=== PATIENT | male | born 1995 | race Caucasian/White ===

== ENCOUNTER 2016-09-18 18:56 | Emergency (ER) | payer BC ==
[2016-09-18] MEDS ORDERED: Ondansetron 4 MG/2 ML SDV IV ONE (20:44)
[2016-09-18] MEDS ORDERED: Morphine 2 MG/ML Syringe IVPUSH ONE (20:44)
[2016-09-18] MEDS ORDERED: Sodium Chloride 0.9% 1,000 ML IV ONE (20:44)
--- NOTE | 2016-09-18 20:50 | EDM.PDOC ---
ED HPI GI/ABDOMINAL - General Chief Complaint: Gastrointestinal Problem Stated Complaint: VOMITING BLOOD Time Seen by Provider: 09/18/16 20:47 Source of Information: Reports: Patient History Limitations: Reports: Intoxication - History of Present Illness INITIAL COMMENTS - FREE TEXT/NARRATIVE: woke up this AM with ab'd pain and later developed diarrhoea then got sicker and vomited few times and saw blood streaks that really worried him because his father had same problem and turned out to be ruptured appy. - Related Data Allergies/ADRs: Allergies Allergy/AdvReac Type Severity Reaction Status Date / Time No Known Allergies Allergy Verified 09/18/16 19:36 Home Meds: Home Meds Escitalopram [Lexapro] 20 mg PO DAILY 09/18/16 [History] Past Medical History - Past Health History Medical/Surgical History: Denies Medical/Surgical History HEENT History: Reports: Impaired vision Respiratory History: Reports: Bronchitis, recurrent, Other (see below) Other Respiratory History: broncho spasm. Gastrointestinal History: Reports: GERD Musculoskeletal History: Reports: Fracture Other Musculoskeletal History: Rt. wrist fx. Psychiatric History: Reports: Depression Endocrine/Metabolic History: Reports: Obesity/BMI 30+ - Infectious Disease History Infectious Disease History: Reports: Chicken pox - Past Surgical History GI Surgical History: Reports: Cholecystectomy Social & Family History - Family History Family Medical History: Noncontributory - Tobacco Use Smoking Status *Q: Current Some Day Smoker Years of Tobacco use: 2 Packs/Tins Daily: 0.1 Used Tobacco, but Quit: Yes Month Tobacco Last Used: april Second Hand Smoke Exposure: Yes - Caffeine Use Caffeine Use: Reports: Coffee, Soda - Alcohol Use Days Per Week of Alcohol Use: 0 - Recreational Drug Use Recreational Drug Use: No ED ROS GENERAL - Review of Systems Review Of Systems: ROS reveals no pertinent complaints other than HPI. ED EXAM, GI/ABD - Physical Exam Exam: See Below Exam Limited By: No limitations General Appearance: alert, WD/WN, mild distress, other (distraught) Ears: hearing grossly normal Throat/Mouth: Normal voice, No airway compromise Head: atraumatic Neck: non-tender, full range of motion Respiratory/Chest: no respiratory distress Cardiovascular: regular rate, rhythm GI/Abdominal: hyperactive bowel sounds, tenderness, other (RIGHT side & RLQ). No: distention, guarding, rebound, rigidity Neurological: alert, oriented, normal cognition, normal gait, no motor/sensory deficits Psychiatric: anxious Skin Exam: Warm, Dry Lymphatic: no adenopathy Course - Vital Signs Last Recorded V/S: Last Vital Signs Temp 36.3 C 09/18/16 19:31 Pulse 98 09/18/16 19:31 Resp 16 09/18/16 19:31 BP 161/89 H 09/18/16 19:31 Pulse Ox 98 09/18/16 19:31 - Orders/Labs/Meds Orders: Active Orders 24 hr Category Date Time Status Abdomen Pelvis w Cont [CT] Urgent Exams 09/18/16 20:46 Taken Sodium Chloride 0.9% [Normal Saline] 1,000 ml Med 09/18/16 20:44 Active IV .BOLUS Medication Orders Sodium Chloride (Normal Saline) 1,000 mls @ 500 mls/hr IV .BOLUS ONE Stop: 09/18/16 22:43 Last Admin: 09/18/16 20:59 Dose: 500 mls/hr Labs: Laboratory Tests 09/18/16 09/18/16 Range/Units 20:50 20:50 WBC 8.3 (5.0-10.0) 10^3/uL RBC 4.51 L (4.6-6.2) 10^6/uL Hgb 13.7 L (14.0-18.0) g/dL Hct 39.4 L (40.0-54.0) % MCV 87.4 (80-100) fL MCH 30.4 (27.0-34.0) pg MCHC 34.8 (33.0-35.0) g/dL Plt Count 200 (150-450) 10^3/uL Neut % (Auto) 57.1 (42.2-75.2) % Lymph % (Auto) 32.7 (20.5-50.1) % [place] % (Auto) 8.8 H (2-8) % Eos % (Auto) 1.0 (1.0-3.0) % Baso % (Auto) 0.4 (0.0-1.0) % Sodium 140 (135-145) mmol/L Potassium 3.7 (3.6-5.0) mmol/L Chloride 105 (101-111) mmol/L Carbon Dioxide 24.0 (21.0-31.0) mmol/L Anion Gap 14.7 BUN 11 (7-18) mg/dL Creatinine 0.8 (0.6-1.3) mg/dL Est Cr Clr Drug Dosing 168.40 mL/min Estimated GFR (MDRD) > 60 BUN/Creatinine Ratio 13.75 Glucose 98 (74-105) mg/dL Calcium 9.1 (8.4-10.2) mg/dl Total Bilirubin 0.9 (0.2-1.0) mg/dL AST 28 (10-42) IU/L ALT 51 (10-60) IU/L Alkaline Phosphatase 49 (42-121) IU/L Total Protein 7.6 (6.7-8.2) g/dl Albumin 4.3 (3.2-5.5) g/dl Globulin 3.3 Albumin/Globulin Ratio 1.30 Amylase 45 (28-100) U/L Lipase 34 (22-51) U/L Meds: Medications Generic Name Dose Route Start Last Admin Trade Name Freq PRN Reason Stop Dose Admin Sodium Chloride 1,000 mls @ 500 mls/hr 09/18/16 20:44 09/18/16 20:59 Normal Saline IV 09/18/16 22:43 500 mls/hr .BOLUS ONE Administration Discontinued Medications Generic Name Dose Route Start Last Admin Trade Name Freq PRN Reason Stop Dose Admin Iopamidol 75 ml 09/18/16 20:59 09/18/16 21:01 Isovue-300 (61%) IVPUSH 09/18/16 21:00 75 ml ONETIME ONE Administration Iopamidol 50 ml 09/18/16 20:59 09/18/16 21:01 Isovue-300 (61%) IVPUSH 09/18/16 21:00 50 ml ONETIME ONE Administration Morphine Sulfate 2 mg 09/18/16 20:44 09/18/16 21:00 Morphine IVPUSH 09/18/16 20:45 2 mg ONETIME ONE Administration Ondansetron HCl 4 mg 09/18/16 20:44 09/18/16 20:59 Zofran IV 09/18/16 20:45 4 mg ONETIME ONE Administration - Re-Assessments/Exams Free Text/Narrative Re-Assessment/Exam: 09/18/16 22:04 results discussed with Pt who is feeling better post IV Departure - Departure Time of Disposition: 22:05 Disposition: Home, Self-Care 01 Condition: good Clinical Impression: Vomiting, Gastroenteritis Instructions: Viral Gastroenteritis, Adult, [id number] Forms: ED Department Discharge Additional Instructions: 1) avoid solid foods next 3 days 2) have popsicle, jello, juice 3) take tylenol or motrin as needed for fever or body aches 4) follow up at clinic or recheck as nneded rx given: bentyl 10mg bid prn zofran 4mg ODT bid prn immodium qid prn - My Orders Last 24 Hours: My Active Orders 09/18/16 20:44 Sodium Chloride 0.9% [Normal Saline] 1,000 ml IV .BOLUS 09/18/16 20:46 Abdomen Pelvis w Cont [CT] Urgent - Assessment/Plan Last 24 Hours: My Active Orders 09/18/16 20:44 Sodium Chloride 0.9% [Normal Saline] 1,000 ml IV .BOLUS 09/18/16 20:46 Abdomen Pelvis w Cont [CT] Urgent
[2016-09-18] MEDS ORDERED: Iopamidol 612 MG/ML 75 ML Bottle IVPUSH ONE (20:59)
[2016-09-18] MEDS ORDERED: Iopamidol 612 MG/ML 50 ML SDV IVPUSH ONE (20:59)
[2016-09-18 21:20] LABS: CHLORIDE,CL 105 mmol/L (101-111); SODIUM,NA 140 mmol/L (135-145)
[2016-09-18 22:17] VITALS: BP 140/98
== END 2016-09-18 22:15 | disposition home or self-care (01) ==
LOC: DL.ED 18:56
DX: K52.9 Noninfective gastroenteritis and colitis, unspecified (principal); K21.9 Gastro-esophageal reflux disease without esophagitis; F32.9 Major depressive disorder, single episode, unspecified; E66.9 Obesity, unspecified; Z90.49 Acquired absence of other specified parts of digestive tract; Z79.899 Other long term (current) drug therapy
CPT/HCPCS: 36415; 74177; 80053; 82150; 83690; 85025; 96365; 96375; 99284; J2270; J2405; J7030; Q9967

== ENCOUNTER 2017-03-26 11:50 | Emergency (ER) | payer BC ==
[2017-03-26 11:56] VITALS: BP 147/75
--- NOTE | 2017-03-26 12:37 | CR ---
Clinical history: 21-year-old male with abdominal pain. Interpretation: (Flat and upright films x4) Large male with levorotatory lumbar scoliosis. Clips gall bladder fossa. No sign of other foreign body, pathologic calcification, mechanical bowel obstruction or free intrape ritoneal air. Lung bases clear. AP pelvis and hips unremarkable. Large abdominal soft tissue pannus. CONCLUSION: Nonspecific plain film exam abdomen.
--- NOTE | 2017-03-26 12:52 | EDM.PDOC ---
ED HPI GENERAL MEDICAL PROBLEM - General Chief Complaint: Abdominal Pain Stated Complaint: ABD PAINS, SP [facility] Time Seen by Provider: 03/26/17 11:55 Source of Information: Reports: Patient History Limitations: Reports: No Limitations - History of Present Illness INITIAL COMMENTS - FREE TEXT/NARRATIVE: 21 yo white male c/o LLQ abdomen pain starting at 11:30AM Onset: Today Onset Date: 03/26/17 Onset Time: 11:30 Duration: Minutes: Location: Reports: Abdomen Quality: Reports: Ache (LLQ) Severity: Moderate Improves with: Reports: None Worsens with: Reports: None Context: Reports: Other (PMHx. Constipation) Associated Symptoms: Reports: No Other Symptoms Left Lower Abdominal Pain Score (Numeric/FACES): 9 - Related Data Allergies Allergy/AdvReac Type Severity Reaction Status Date / Time No Known Allergies Allergy Verified 03/26/17 11:56 Home Meds: Home Meds Escitalopram [Lexapro] 20 mg PO DAILY 09/18/16 [History] Past Medical History - Past Health History Medical/Surgical History: Denies Medical/Surgical History HEENT History: Reports: Impaired Vision Cardiovascular History: Reports: None Respiratory History: Reports: Bronchitis, Recurrent Other Respiratory History: broncho spasm. Gastrointestinal History: Reports: Chronic Constipation, GERD Genitourinary History: Reports: None Musculoskeletal History: Reports: Fracture Other Musculoskeletal History: Rt. wrist fx. Neurological History: Reports: None Psychiatric History: Reports: Depression Endocrine/Metabolic History: Reports: Obesity/BMI 30+ Hematologic History: Reports: None Oncologic (Cancer) History: Reports: None Dermatologic History: Reports: None - Infectious Disease History Infectious Disease History: Reports: Chicken Pox - Past Surgical History GI Surgical History: Reports: Cholecystectomy Social & Family History - Family History Family Medical History: Noncontributory - Tobacco Use Smoking Status *Q: Current Some Day Smoker Years of Tobacco use: 3 Packs/Tins Daily: 0.1 Used Tobacco, but Quit: Yes Month Tobacco Last Used: april Second Hand Smoke Exposure: Yes - Caffeine Use Caffeine Use: Reports: Coffee, Energy Drinks, Soda - Alcohol Use Days Per Week of Alcohol Use: 0 - Recreational Drug Use Recreational Drug Use: No ED ROS GENERAL - Review of Systems Review Of Systems: See Below Constitutional: Reports: No Symptoms HEENT: Reports: No Symptoms Respiratory: Reports: No Symptoms Cardiovascular: Reports: No Symptoms Endocrine: Reports: No Symptoms GI/Abdominal: Reports: Abdominal Pain (LLQ) : Reports: No Symptoms Musculoskeletal: Reports: No Symptoms Skin: Reports: No Symptoms Neurological: Reports: No Symptoms Psychiatric: Reports: No Symptoms Hematologic/Lymphatic: Reports: No Symptoms Immunologic: Reports: No Symptoms ED EXAM, GI/ABD - Physical Exam Exam: See Below Exam Limited By: No Limitations General Appearance: Alert, Obese Eyes: Bilateral: EOMI Ears: Normal External Exam Nose: Normal Inspection Throat/Mouth: Normal Inspection Head: Atraumatic Neck: Normal Inspection Respiratory/Chest: No Respiratory Distress Cardiovascular: Normal Peripheral Pulses GI/Abdominal Exam: No Mass, Tender (LLQ), Abnormal Bowel Sounds (decrerased) Back Exam: Normal Inspection Extremities: Normal Inspection, Normal Range of Motion Neurological: Alert, Oriented, CN II-XII Intact Psychiatric: Normal Affect Skin Exam: Warm, Dry Lymphatic: No Adenopathy Course - Vital Signs Last Recorded V/S: Last Vital Signs Temp 36.8 C 03/26/17 11:52 Pulse 86 03/26/17 11:52 Resp 18 03/26/17 11:52 BP 147/75 H 03/26/17 11:52 Pulse Ox 99 03/26/17 11:52 - Orders/Labs/Meds Orders: Active Orders 24 hr Category Date Time Status CBC WITH AUTO DIFF [HEME] Stat Lab 03/26/17 11:59 Ordered COMPREHENSIVE METABOLIC PN,CMP [CHEM] Stat Lab 03/26/17 11:59 Ordered UA W/MICROSCOPIC [URIN] Stat Lab 03/26/17 11:59 Uncollected Departure - Departure Time of Disposition: 12:49 Disposition: Home, Self-Care 01 Condition: Good Clinical Impression: Obstipation Abdominal pain Qualifiers: Abdominal location: left lower quadrant Qualified Code(s): R10.32 - Left lower quadrant pain - Discharge Information Instructions: Constipation, Adult, [id number], Abdominal Pain, Adult, Easy-to -Read Forms: ED Department Discharge Additional Instructions: Increase water intake TODAY: 1) Drink on bottle of Magnesium Citrate 2) Give yourself a FLEET Enema 3) Increase intake of fresh fruits and vegetables 4) STOP constipating foods ( Animal products, processed foods and Dairy products) 5) Chew prunes daily to promote good bowel function F/U w/ PCP - My Orders Last 24 Hours: My Active Orders 03/26/17 11:59 CBC WITH AUTO DIFF [HEME] Stat COMPREHENSIVE METABOLIC PN,CMP [CHEM] Stat UA W/MICROSCOPIC [URIN] Stat - Assessment/Plan Last 24 Hours: My Active Orders 03/26/17 11:59 CBC WITH AUTO DIFF [HEME] Stat COMPREHENSIVE METABOLIC PN,CMP [CHEM] Stat UA W/MICROSCOPIC [URIN] Stat
[2017-03-26 14:56] LABS: SODIUM,NA 139 mmol/L (135-145)
[2017-03-26 14:57] LABS: CHLORIDE,CL 105 mmol/L (101-111)
== END 2017-03-26 12:54 | disposition home or self-care (01) ==
LOC: DL.ED 11:50
DX: K59.00 Constipation, unspecified (principal); K21.9 Gastro-esophageal reflux disease without esophagitis; F17.210 Nicotine dependence, cigarettes, uncomplicated; Z79.899 Other long term (current) drug therapy
CPT/HCPCS: 36415; 74020; 80053; 81001; 85025; 99284

== ENCOUNTER 2017-08-25 14:11 | Emergency (ER) | payer BC, OTHER ==
[2017-08-25] MEDS ORDERED: Sodium Chloride 0.9% 10 ML Syringe FLUSH PRN (14:52)
--- NOTE | 2017-08-25 14:52 | EDM.PDOC ---
ED HPI GENERAL MEDICAL PROBLEM - General Chief Complaint: Chest Pain Stated Complaint: CHEST PAINS [id number] Time Seen by Provider: 08/25/17 14:46 Source of Information: Reports: Patient, RN, RN Notes Reviewed History Limitations: Reports: No Limitations - History of Present Illness INITIAL COMMENTS - FREE TEXT/NARRATIVE: Kang is a 22yo M who presents to the ED today with mid-sternal chest pain that started around 1000 this am. Reports that he has just woken up when he noticed the pain. Reports pain is worse with movement or deep breathing. Reports dizziness off and on. Has had a productive cough for the last two days. Has had chills off and on.Mild shortness of breath. Denies body aches, nausea,vomiting, or abd pain. Denies recent exposure to anyone that has been ill. Onset: Today Duration: Hour(s):, Constant Location: Reports: Chest Quality: Reports: Stabbing Severity: Moderate Improves with: Reports: None Worsens with: Reports: Breathing, Movement Associated Symptoms: Reports: cough w sputum, Shortness of Breath Mid-Sternal Chest Pain Score (Numeric/FACES): 10 - Related Data Allergies Allergy/AdvReac Type Severity Reaction Status Date / Time No Known Allergies Allergy Verified 03/26/17 11:56 Home Meds: Home Meds Escitalopram [Lexapro] 20 mg PO DAILY 09/18/16 [History] Past Medical History - Past Health History Medical/Surgical History: Denies Medical/Surgical History HEENT History: Reports: Impaired Vision Cardiovascular History: Reports: None Respiratory History: Reports: Bronchitis, Recurrent Other Respiratory History: broncho spasm. Gastrointestinal History: Reports: Chronic Constipation, GERD Genitourinary History: Reports: None Musculoskeletal History: Reports: Fracture Other Musculoskeletal History: Rt. wrist fx. Neurological History: Reports: None Psychiatric History: Reports: Anxiety, Depression Endocrine/Metabolic History: Reports: Obesity/BMI 30+ Hematologic History: Reports: None Oncologic (Cancer) History: Reports: None Dermatologic History: Reports: None - Infectious Disease History Infectious Disease History: Reports: Chicken Pox - Past Surgical History GI Surgical History: Reports: Cholecystectomy Social & Family History - Family History Family Medical History: Noncontributory - Tobacco Use Smoking Status *Q: Never Smoker Years of Tobacco use: 3 Packs/Tins Daily: 0.1 Used Tobacco, but Quit: Yes Month Tobacco Last Used: november Second Hand Smoke Exposure: Yes - Caffeine Use Caffeine Use: Reports: Soda - Alcohol Use Days Per Week of Alcohol Use: 0 - Recreational Drug Use Recreational Drug Use: No ED ROS GENERAL - Review of Systems Review Of Systems: ROS reveals no pertinent complaints other than HPI. ED EXAM, GENERAL - Physical Exam Exam: See Below Exam Limited By: No Limitations General Appearance: Alert, WD/WN, No Apparent Distress Eye Exam: Bilateral Eye: PERRL Ears: Normal External Exam, Normal Canal, Normal TMs Ear Exam: Bilateral Ear: Canal Normal, TM normal Nose: Normal Inspection, Normal Mucosa Throat/Mouth: Normal Inspection, Normal Oropharynx, No Airway Compromise Head: Atraumatic, Normocephalic Neck: Normal Inspection, Supple Respiratory/Chest: No Respiratory Distress, Lungs Clear, Normal Breath Sounds, No Accessory Muscle Use Cardiovascular: Regular Rate, Rhythm, No Gallop, No Murmur, No Rub, Other ( Patient reports pain to mid chest worse on palpation) GI/Abdominal: Normal Bowel Sounds, Soft, Non-Tender, No Organomegaly (Male) Exam: Deferred Rectal (Males) Exam: Deferred Back Exam: Normal Inspection, Full Range of Motion Extremities: Normal Inspection, Normal Range of Motion, Normal Capillary Refill Neurological: Alert, Oriented, CN II-XII Intact Psychiatric: Normal Affect, Normal Mood Skin Exam: Warm, Dry, Normal Color, No Rash EKG INTERPRETATION EKG Date: 08/25/17 Time: 14:27 Rhythm: NSR Rate (Beats/Min): 70 [place]: Normal P-Wave: Present QRS: Normal ST-T: Normal QT: Normal Comparison: No Change Course - Vital Signs Last Recorded V/S: Last Vital Signs Temp 98 F 08/25/17 14:30 Pulse 89 08/25/17 16:36 Resp 18 08/25/17 16:36 BP 141/86 H 08/25/17 16:36 Pulse Ox 99 08/25/17 16:36 - Orders/Labs/Meds Orders: Active Orders 24 hr Category Date Time Status EKG Documentation Completion [RC] STAT Care 08/25/17 14:53 Active Peripheral IV Care [RC] . DIRECTED Care 08/25/17 14:54 Active Sodium Chloride 0.9% [Saline Flush] Med 08/25/17 14:52 Active 10 ml FLUSH ASDIRECTED PRN Peripheral IV Insertion Adult [OM.PC] Stat Oth 08/25/17 14:53 Ordered Medication Orders Sodium Chloride (Saline Flush) 10 ml FLUSH ASDIRECTED PRN PRN Reason: Keep Vein Open Last Admin: 08/25/17 16:36 Dose: 10 ml Labs: Laboratory Tests 08/25/17 08/25/17 08/25/17 Range/Units 15:05 15:05 15:05 WBC 6.5 (5.0-10.0) 10^3/uL RBC 5.11 (4.6-6.2) 10^6/uL Hgb 15.4 D (14.0-18.0) g/dL Hct 44.2 (40.0-54.0) % MCV 86.5 (80-100) fL MCH 30.1 (27.0-34.0) pg MCHC 34.8 (33.0-35.0) g/dL Plt Count 178 (150-450) 10^3/uL Neut % (Auto) 51.9 (42.2-75.2) % Lymph % (Auto) 37.1 (20.5-50.1) % [place] % (Auto) 8.9 H (2-8) % Eos % (Auto) 1.8 (1.0-3.0) % Baso % (Auto) 0.3 (0.0-1.0) % D-Dimer, Quantitative (0-400) ng/mL Sodium 136 (135-145) mmol/L Potassium 3.9 (3.6-5.0) mmol/L Chloride 104 (101-111) mmol/L Carbon Dioxide 25.0 (21.0-31.0) mmol/L Anion Gap 10.9 BUN 11 (7-18) mg/dL Creatinine 0.7 (0.6-1.3) mg/dL Est Cr Clr Drug Dosing 190.82 mL/min Estimated GFR (MDRD) > 60 BUN/Creatinine Ratio 15.71 Glucose 88 (74-105) mg/dL Calcium 9.3 (8.4-10.2) mg/dl Total Bilirubin 0.9 (0.2-1.0) mg/dL AST 30 (10-42) IU/L ALT 60 (10-60) IU/L Alkaline Phosphatase 45 (42-121) IU/L Creatine Kinase 59 (26-174) IU/L Creatine Kinase Index 1.4 (0-2.4) % CK-MB (CK-2) 0.80 (0.4-4.7) ng/mL Troponin I < 0.02 (0.00-0.02) ng/ml Total Protein 7.7 (6.7-8.2) g/dl Albumin 4.3 (3.2-5.5) g/dl Globulin 3.4 Albumin/Globulin Ratio 1.26 Amylase 53 (28-100) U/L Lipase 21 L (22-51) U/L Urine Color (YELLOW) Urine Appearance (CLEAR) Urine pH (5.0-9.0) Ur Specific [place] (1.005-1.030) Urine Protein (NEGATIVE) Urine Glucose (UA) (NEGATIVE) Urine Ketones (NEGATIVE) Urine Occult Blood (NEGATIVE) Urine Nitrite (NEGATIVE) Urine Bilirubin (NEGATIVE) Urine Urobilinogen (0.2-1.0) mg/dL Ur Leukocyte Esterase (NEGATIVE) Urine RBC /HPF Urine WBC (0-5/HPF) /HPF Ur Epithelial Cells /HPF Urine Mucus /LPF Urine Opiates Screen (NEGATIVE) Ur Oxycodone Screen (NEGATIVE) Urine Methadone Screen (NEGATIVE) Ur Barbiturates Screen (NEGATIVE) U Tricyclic Antidepress (NEGATIVE) Ur Phencyclidine Scrn (NEGATIVE) Ur Amphetamine Screen (NEGATIVE) U Methamphetamines Scrn (NEGATIVE) Urine MDMA Screen (NEGATIVE) U Benzodiazepines Scrn (NEGATIVE) Urine Cocaine Screen (NEGATIVE) U Marijuana (THC) Screen (NEGATIVE) 08/25/17 08/25/17 08/25/17 Range/Units 15:05 16:02 16:02 WBC (5.0-10.0) 10^3/uL RBC (4.6-6.2) 10^6/uL Hgb (14.0-18.0) g/dL Hct (40.0-54.0) % MCV (80-100) fL MCH (27.0-34.0) pg MCHC (33.0-35.0) g/dL Plt Count (150-450) 10^3/uL Neut % (Auto) (42.2-75.2) % Lymph % (Auto) (20.5-50.1) % [place] % (Auto) (2-8) % Eos % (Auto) (1.0-3.0) % Baso % (Auto) (0.0-1.0) % D-Dimer, Quantitative < 100 (0-400) ng/mL Sodium (135-145) mmol/L Potassium (3.6-5.0) mmol/L Chloride (101-111) mmol/L Carbon Dioxide (21.0-31.0) mmol/L Anion Gap BUN (7-18) mg/dL Creatinine (0.6-1.3) mg/dL Est Cr Clr Drug Dosing mL/min Estimated GFR (MDRD) BUN/Creatinine Ratio Glucose (74-105) mg/dL Calcium (8.4-10.2) mg/dl Total Bilirubin (0.2-1.0) mg/dL AST (10-42) IU/L ALT (10-60) IU/L Alkaline Phosphatase (42-121) IU/L Creatine Kinase (26-174) IU/L Creatine Kinase Index (0-2.4) % CK-MB (CK-2) (0.4-4.7) ng/mL Troponin I (0.00-0.02) ng/ml Total Protein (6.7-8.2) g/dl Albumin (3.2-5.5) g/dl Globulin Albumin/Globulin Ratio Amylase (28-100) U/L Lipase (22-51) U/L Urine Color Yellow (YELLOW) Urine Appearance Clear (CLEAR) Urine pH 6.0 (5.0-9.0) Ur Specific [place] 1.020 (1.005-1.030) Urine Protein Negative (NEGATIVE) Urine Glucose (UA) Negative (NEGATIVE) Urine Ketones Negative (NEGATIVE) Urine Occult Blood Negative (NEGATIVE) Urine Nitrite Negative (NEGATIVE) Urine Bilirubin Negative (NEGATIVE) Urine Urobilinogen 0.2 (0.2-1.0) mg/dL Ur Leukocyte Esterase Negative (NEGATIVE) Urine RBC 0-5 /HPF Urine WBC Not seen (0-5/HPF) /HPF Ur Epithelial Cells Rare /HPF Urine Mucus Rare /LPF Urine Opiates Screen Negative (NEGATIVE) Ur Oxycodone Screen Negative (NEGATIVE) Urine Methadone Screen Negative (NEGATIVE) Ur Barbiturates Screen Negative (NEGATIVE) U Tricyclic Antidepress Negative (NEGATIVE) Ur Phencyclidine Scrn Negative (NEGATIVE) Ur Amphetamine Screen Negative (NEGATIVE) U Methamphetamines Scrn Negative (NEGATIVE) Urine MDMA Screen Negative (NEGATIVE) U Benzodiazepines Scrn Negative (NEGATIVE) Urine Cocaine Screen Negative (NEGATIVE) U Marijuana (THC) Screen Negative (NEGATIVE) Meds: Medications Generic Name Dose Route Start Last Admin Trade Name Rocco PRN Reason Stop Dose Admin Sodium Chloride 10 ml 08/25/17 14:52 08/25/17 16:36 Saline Flush FLUSH 10 ml ASDIRECTED PRN Administration Keep Vein Open Discontinued Medications Generic Name Dose Route Start Last Admin Trade Name Freq PRN Reason Stop Dose Admin Al Hydroxide/Mg Hydroxide 30 ml 08/25/17 15:46 08/25/17 15:54 Gi Cocktail PO 08/25/17 15:47 30 ml ONETIME ONE Administration Lorazepam 1 mg 08/25/17 16:13 08/25/17 16:37 Ativan IVPUSH 08/25/17 16:14 1 mg ONETIME ONE Administration Departure - Departure Time of Disposition: 17:19 Disposition: Home, Self-Care 01 Condition: Fair Clinical Impression: Nonspecific chest pain, Costochondritis Instructions: Costochondritis, [id number], Nonspecific Chest Pain, Easy-to- Read Forms: ED Department Discharge Additional Instructions: Ibuprofen or Tylenol as directed for pain Drink plenty of water Follow up with your primary care facility - My Orders Last 24 Hours: My Active Orders 08/25/17 14:52 Sodium Chloride 0.9% [Saline Flush] 10 ml FLUSH ASDIRECTED PRN 08/25/17 14:53 EKG Documentation Completion [RC] STAT Peripheral IV Insertion Adult [OM.PC] Stat 08/25/17 14:54 Peripheral IV Care [RC] . DIRECTED - Assessment/Plan Last 24 Hours: My Active Orders 08/25/17 14:52 Sodium Chloride 0.9% [Saline Flush] 10 ml FLUSH ASDIRECTED PRN 08/25/17 14:53 EKG Documentation Completion [RC] STAT Peripheral IV Insertion Adult [OM.PC] Stat 08/25/17 14:54 Peripheral IV Care [RC] . DIRECTED
--- NOTE | 2017-08-25 15:19 | CR ---
Clinical history: 22-year-old male chest pain Interpretation: Reasonable inspiratory effort obese male with normal cardiac silhouette. No cephalization of vascular flow, signs of alveolar edema or dependent pleural effusion. No lung mass or hilar lymphadenopathy. No lobar pneumonia, atelectasis or collapse. No pneumothorax or free subdiaphragmatic air. Bony skeleton unremarkable. CONCLUSION: No acute new cardiopulmonary abnormality since 30 June 2016 exam.
[2017-08-25 15:33] LABS: CHLORIDE,CL 104 mmol/L (101-111); SODIUM,NA 136 mmol/L (135-145)
[2017-08-25] MEDS ORDERED: GI Cocktail Oral Solution 30 ML PO ONE (15:46)
[2017-08-25] MEDS ORDERED: LORazepam 2 MG/ML Syringe IVPUSH ONE (16:13)
[2017-08-25 16:38] VITALS: BP 141/86
--- NOTE | 2017-08-26 17:25 | EKG ---
08/25/2017 - SHARON FLORES - TIME: 2:27 p.m. EKG shows a heart rate of 70 beats per minute. Rhythm is sinus. are normal. No ST segment changes. [place] is normal. CONCLUSION: Normal EKG. [facility] /[id number]
== END 2017-08-25 17:34 | disposition home or self-care (01) ==
LOC: DL.ED 14:11
DX: M94.0 Chondrocostal junction syndrome [Tietze] (principal); Z79.899 Other long term (current) drug therapy; Z87.891 Personal history of nicotine dependence
CPT/HCPCS: 36415; 71046; 80053; 80305; 81001; 82150; 82550; 82553; 83690; 84484; 85025; 85379; 87804; 93005; 96374; 99285; A9270-GY; J2060; J7050

== ENCOUNTER 2018-01-01 06:40 | Day surgery (SDC) | payer BC ==
[2018-01-01] MEDS ORDERED: Midazolam 1 MG/ML 2 ML SDV IV ONE ×6 (06:41→08:02)
[2018-01-01] MEDS ORDERED: Midazolam 1 MG/ML 2 ML SDV ONE ×3 (06:54→08:22)
[2018-01-01] MEDS ORDERED: fentaNYL 100 MCG/2 ML SDV ONE (06:54)
[2018-01-01] MEDS ORDERED: Lactated Ringers 1,000 ML IV SCH (07:15)
[2018-01-01] MEDS ORDERED: Benzocaine 20% Oral Spray 59.2 ML Canister ONE (07:52)
[2018-01-01] MEDS ORDERED: Benzocaine 20% Oral Spray 59.2 ML Canister MUCMEM ONE (07:59)
--- NOTE | 2018-01-01 08:41 | OR ---
DATE: 01/01/2018 PREOPERATIVE DIAGNOSIS: Epigastric abdominal pain. POSTOPERATIVE DIAGNOSIS: Epigastric abdominal pain. PROCEDURE: Esophagogastroduodenoscopy with biopsy for H. pylori. ANESTHESIA: Conscious sedation with IV Versed 6 mg. SPECIMEN: Gastric biopsy. OPERATIVE FINDING: Normal EGD. RECOMMENDATION: This patient has moderate epigastric abdominal pain. I do not see anything gastric chairez that would be causing this. He has had a laparoscopic cholecystectomy. He might have some sequela of that with an incisional hernia. An ultrasound or CAT scan of the upper abdomen might be useful to rule out a hernia or any other intraperitoneal, although his pain seems to be body wall. INDICATION FOR PROCEDURE: This 22-year-old male was referred by CHERI Montes, for evaluation of epigastric abdominal pain. PROCEDURE IN DETAIL: After adequate preparation, a gastroscope was inserted into the esophagus. This was passed down to the distal esophagus. A photograph of the distal EG junction was taken. This appears to be normal. No evidence of reflux esophagitis, masses, or bleeding. The scope was advanced into the stomach. Both forward and retroflexed views were done and are normal. A biopsy of the prepyloric antrum was taken for evaluation for H. pylori bacteria. The scope was advanced through the pylorus, and the first and second part of the duodenum are also normal. No evidence of ulcerations, does not have gastritis. Air was suctioned from the stomach, and the scope was removed. [facility] /[id number]
[2018-01-01 12:18] VITALS: BP 124/79
== END 2018-01-01 09:52 | disposition home or self-care (01) ==
LOC: DL.ENDO 06:40
PROVIDERS: ATTEND Surgery
DX: R10.13 Epigastric pain (principal); I10 Essential (primary) hypertension; E66.01 Morbid (severe) obesity due to excess calories; F32.9 Major depressive disorder, single episode, unspecified; Z79.899 Other long term (current) drug therapy; Z90.49 Acquired absence of other specified parts of digestive tract; Z87.891 Personal history of nicotine dependence
CPT/HCPCS: 43239; J2250; J7120; 87077

== ENCOUNTER 2018-01-03 04:47 | Emergency (ER) | payer BC ==
[2018-01-03 04:58] VITALS: BP 131/78
[2018-01-03] MEDS ORDERED: GI Cocktail Oral Solution 30 ML PO ONE (05:14)
--- NOTE | 2018-01-03 05:20 | EDM.PDOC ---
ED HPI GENERAL MEDICAL PROBLEM - General Chief Complaint: Abdominal Pain Stated Complaint: PAIN IN STOMACH [id number] Time Seen by Provider: 01/03/18 05:15 Source of Information: Reports: Patient History Limitations: Reports: No Limitations - History of Present Illness INITIAL COMMENTS - FREE TEXT/NARRATIVE: states abd pain started 1 month ago, initially was intermittent then became constant and not associated with any foods doesn't eat a lot of fried foods or spicy foods. had EGD done 2 days ago ER record show no gross ulceration noted. present episode began last night not getting denies V/D Middle Abdominal Pain Score (Numeric/FACES): 8 - Related Data Allergies Allergy/AdvReac Type Severity Reaction Status Date / Time No Known Allergies Allergy Verified 12/30/17 11:25 Home Meds: Home Meds Escitalopram [Lexapro] 20 mg PO DAILY 09/18/16 [History] Losartan/Hydrochlorothiazide [Losartan-HCTZ 100-12.5 MG] 1 tab PO DAILY [History] Omeprazole 40 mg PO DAILY 12/30/17 [History] Ondansetron HCl [Ondansetron] 4 mg PO ASDIRECTED PRN 12/30/17 [History] Past Medical History - Past Health History Medical/Surgical History: Denies Medical/Surgical History HEENT History: Reports: Impaired Vision Cardiovascular History: Reports: Hypertension Respiratory History: Reports: Bronchitis, Recurrent Other Respiratory History: broncho spasm. Gastrointestinal History: Reports: Chronic Constipation, GERD Genitourinary History: Reports: None Musculoskeletal History: Reports: Fracture Other Musculoskeletal History: Rt. wrist fx. Neurological History: Reports: None Psychiatric History: Reports: Anxiety, Depression Endocrine/Metabolic History: Reports: Obesity/BMI 30+ Hematologic History: Reports: None Immunologic History: Reports: None Oncologic (Cancer) History: Reports: None Dermatologic History: Reports: None - Infectious Disease History Infectious Disease History: Reports: Chicken Pox - Past Surgical History Head Surgeries/Procedures: Reports: None HEENT Surgical History: Reports: None Cardiovascular Surgical History: Reports: None Respiratory Surgical History: Reports: None GI Surgical History: Reports: Cholecystectomy Male Surgical History: Reports: None Social & Family History - Family History Family Medical History: Noncontributory Musculoskeletal: Reports: Back pain, Chronic - Tobacco Use Smoking Status *Q: Former Smoker Used Tobacco, but Quit: Yes Month/Year Tobacco Last Used: 08/2017 - Caffeine Use Caffeine Use: Reports: Soda Other Caffeine Use: 4 cans daily - Recreational Drug Use Recreational Drug Use: No ED ROS GENERAL - Review of Systems Review Of Systems: ROS reveals no pertinent complaints other than HPI. ED EXAM, GI/ABD - Physical Exam Exam: See Below Exam Limited By: No Limitations General Appearance: Alert, WD/WN, Mild Distress, Other (discomfort) Ears: Hearing Grossly Normal Throat/Mouth: Normal Voice, No Airway Compromise Head: Atraumatic Neck: Non-Tender, Full Range of Motion Respiratory/Chest: No Respiratory Distress Cardiovascular: Regular Rate, Rhythm GI/Abdominal Exam: Tender, Other (epiG). No: Distended, Guarding, Rigid, Rebound Neurological: Alert, Oriented, Normal Cognition, Normal Gait, No Motor/Sensory Deficits Psychiatric: Flat Affect Skin Exam: Warm, Dry, Normal Color Lymphatic: No Adenopathy Course - Vital Signs Last Recorded V/S: Last Vital Signs Temp 36.3 C 01/03/18 04:56 Pulse 90 01/03/18 04:56 Resp 16 01/03/18 04:56 BP 131/78 01/03/18 04:56 Pulse Ox 100 01/03/18 04:56 - Orders/Labs/Meds Labs: Laboratory Tests 01/03/18 01/03/18 Range/Units 05:45 05:45 WBC 7.0 (5.0-10.0) 10^3/uL RBC 4.87 (4.6-6.2) 10^6/uL Hgb 14.4 (14.0-18.0) g/dL Hct 42.3 (40.0-54.0) % MCV 86.9 (80-100) fL MCH 29.6 (27.0-34.0) pg MCHC 34.0 (33.0-35.0) g/dL Plt Count 189 (150-450) 10^3/uL Neut % (Auto) 59.1 (42.2-75.2) % Lymph % (Auto) 30.0 (20.5-50.1) % [place] % (Auto) 9.2 H (2-8) % Eos % (Auto) 1.3 (1.0-3.0) % Baso % (Auto) 0.4 (0.0-1.0) % Sodium 138 (135-145) mmol/L Potassium 3.4 L (3.6-5.0) mmol/L Chloride 104 (101-111) mmol/L Carbon Dioxide 25.0 (21.0-31.0) mmol/L Anion Gap 12.4 BUN 11 (7-18) mg/dL Creatinine 0.8 (0.6-1.3) mg/dL Est Cr Clr Drug Dosing 166.97 mL/min Estimated GFR (MDRD) > 60 BUN/Creatinine Ratio 13.75 Glucose 99 (74-105) mg/dL Calcium 9.3 (8.4-10.2) mg/dl Total Bilirubin 1.5 H (0.2-1.0) mg/dL AST 25 (10-42) IU/L ALT 44 (10-60) IU/L Alkaline Phosphatase 47 (42-121) IU/L Total Protein 7.8 (6.7-8.2) g/dl Albumin 4.6 (3.2-5.5) g/dl Globulin 3.2 Albumin/Globulin Ratio 1.44 Amylase 46 (28-100) U/L Lipase 30 (22-51) U/L Meds: Medications Discontinued Medications Generic Name Dose Route Start Last Admin Trade Name Freq PRN Reason Stop Dose Admin Al Hydroxide/Mg Hydroxide 30 ml 01/03/18 05:14 01/03/18 05:20 Gi Cocktail PO 01/03/18 05:15 30 ml ONETIME ONE Administration Ketorolac Tromethamine 15 mg 01/03/18 05:31 01/03/18 05:47 Toradol IVPUSH 01/03/18 05:32 15 mg ONETIME ONE Administration - Re-Assessments/Exams Free Text/Narrative Re-Assessment/Exam: 01/03/18 06:22 results discussed with pt. Departure - Departure Time of Disposition: 06:22 Disposition: Home, Self-Care 01 Condition: Good Clinical Impression: Abdominal pain - Discharge Information Instructions: Abdominal Pain, Adult, [id number] Forms: ED Department Discharge Additional Instructions: 1) see Stephanie Thursday for possible GASTROENTEROLGY REFERRAL 2) avoid spicy and fatty foods 3) recheck as needed
[2018-01-03] MEDS ORDERED: Ketorolac 30 MG/ML SDV IVPUSH ONE (05:31)
[2018-01-03 06:10] LABS: ANION GAP 12.4; CHLORIDE,CL 104 mmol/L (101-111); SODIUM,NA 138 mmol/L (135-145)
== END 2018-01-03 06:26 | disposition home or self-care (01) ==
LOC: DL.ED 04:47
DX: R10.13 Epigastric pain (principal); I10 Essential (primary) hypertension; E66.9 Obesity, unspecified; Z87.891 Personal history of nicotine dependence; Z79.899 Other long term (current) drug therapy
CPT/HCPCS: 36415; 80053; 82150; 83690; 85025; 96374; 99284; A9270; J1885

== ENCOUNTER 2021-06-24 07:43 | Emergency (ER) | payer SELFPAY ==
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
[2021-06-24 08:08] VITALS: BP 145/90; PULSE 64
[2021-06-24] MEDS ORDERED: Ketorolac 30 MG/ML SDV IM ONE (08:10)
[2021-06-24] MEDS ORDERED: Cyclobenzaprine 10 MG Tab PO ONE (08:10)
== END 2021-06-24 08:40 | disposition home or self-care (01) ==
LOC: DL.ED 07:43
DX: S39.012A Strain of muscle, fascia and tendon of lower back, initial encounter (principal); M62.830 Muscle spasm of back; I10 Essential (primary) hypertension; E66.9 Obesity, unspecified; Z68.41 Body mass index [BMI] 40.0-44.9, adult
CPT/HCPCS: 96372; 99283; A9270; J1885

== ENCOUNTER 2023-11-20 07:10 | Emergency (ER) | payer BC, OTHER ==
[2023-11-20 07:44] VITALS: BP 137/102; PULSE 85
[2023-11-20 07:47] LABS: HEMATOCRIT 41.1 % (40.0-54.0); HEMOGLOBIN 13.8 g/dL (14.0-18.0); MEAN CORPUSCULAR HEMOGLOBIN 29.8 pg (27.0-34.0); MEAN CORPUSCULAR HGB CONC 33.6 g/dL (33.0-35.0); MEAN CORPUSCULAR VOLUME 88.8 fL (80-100); PLATELET COUNT,PLT 251 10^3/uL (150-450); RED BLOOD CELL COUNT 4.63 10^6/uL (4.6-6.2); WHITE BLOOD CELL COUNT,WBC 9.2 10^3/uL (5.0-10.0)
[2023-11-20] MEDS: Morphine 2 MG/ML SYRINGE IVPUSH ONE ×2 (07:49→09:37)
[2023-11-20] MEDS: Sodium Chloride 0.9% 10 ML Syringe FLUSH PRN (07:50)
[2023-11-20] MEDS: Sodium Chloride 0.9% 1,000 ML IV ONE (07:50)
[2023-11-20 08:03] LABS: BASOPHILS PERCENT AUTO 0.3 % (0.0-1.0); EOSINOPHILS PERCENT AUTO 0.9 % (1.0-3.0); LYMPHOCYTES PERCENT AUTO 19.9 % (20.5-50.1); MONOCYTES PERCENT AUTO 7.9 % (2-8)
[2023-11-20 08:06] LABS: PROTHROMBIN TIME 9.9 SEC (9.0-12.0); PTT,PARTIAL THROMBOPLSTIN TIME 27.4 SEC (22.0-34.0)
[2023-11-20] MEDS: Iopamidol 755 Mg/ML 100 ML Bottle IVPUSH ONE (08:06)
[2023-11-20 08:18] LABS: ALBUMIN 3.3 g/dL (3.4-5.0); ANION GAP 13.7 mEq/L (7-13); BILIRUBIN TOTAL 0.8 mg/dL (0.2-1.0); BUN/CREATININE RATIO 11.5 (No establ ref range); CALCIUM 8.6 mg/dL (8.5-10.1); CREATININE 0.78 mg/dL (0.70-1.30); EST CRCL DRUG DOSING (CG) 157.92 mL/min; POTASSIUM,K 3.7 mmol/L (3.5-5.1); PROTEIN TOTAL,TP 7.2 g/dL (6.4-8.2)
[2023-11-20 08:21] LABS: A/G RATIO 0.85
[2023-11-20 08:30] LABS: EOSINOPHILS PERCENT MAN 1 % (1-3); LYMPHOCYTES PERCENT MAN 19 % (20-50); MONOCYTES PERCENT MAN 8 % (2-8); SEG NEUTROPHILS PERCENT MAN 72 % (42-75)
[2023-11-20 08:44] LABS: CORONAVIRUS COVID-19 NAA NEGATIVE (NEGATIVE); INFLUENZA A NAA NEGATIVE (NEGATIVE); INFLUENZA B NAA NEGATIVE (NEGATIVE); RESPIRATORY SYNCYTIAL VIR NAA NEGATIVE (NEGATIVE)
[2023-11-20] MEDS: cefTRIAXone 2 GM Vial IVPUSH ONE (08:54)
[2023-11-20] MEDS: Azithromycin 500 MG in Sodium Chloride 0.9% 250 ML IV ONE (08:54)
== END 2023-11-20 10:20 | disposition home or self-care (01) ==
LOC: DL.ED 07:10
DX: S22.31XA Fracture of one rib, right side, initial encounter for closed fracture (principal); J98.11 Atelectasis; I10 Essential (primary) hypertension; K21.9 Gastro-esophageal reflux disease without esophagitis; Z90.49 Acquired absence of other specified parts of digestive tract; Z79.899 Other long term (current) drug therapy; W22.8XXA Striking against or struck by other objects, initial encounter; Y93.89 Activity, other specified; Y99.0 Civilian activity done for income or pay
CPT/HCPCS: 0241U; 36415; 71275; 80053; 83605; 85025; 85610; 85730; 94010; 96361; 96365; 96375; 96376; 99285-25; J0456; J0696; J2270; J3490; J7030; J7050; Q9967